=== PATIENT | male | born 1965 | race Caucasian/White ===

== ENCOUNTER 2018-12-17 10:20 | Emergency (ER) | payer SELFPAY ==
[2018-12-17 11:32] LABS: ADD MAN DIFF? NO
[2018-12-17 11:36] LABS: WHITE BLOOD COUNT 3.9 10^3/ul (4.8-10.8)
[2018-12-17 11:36] LABS: EOSINOPHILS # 0.1 10^3/ul (0.0-0.5); EOSINOPHILS % 3.1 % (0.0-7.0); HEMATOCRIT 46.9 % (42.0-52.0); HEMOGLOBIN 15.4 g/dl (14.0-18.0); LYMPHOCYTES # 1.5 10^3/ul (0.8-2.9); LYMPHOCYTES % 38.4 % (15.0-51.0); MEAN CORPUSCULAR HGB CONC 32.8 g/dl (32.0-37.0); MEAN CORPUSCULAR VOLUME 88.3 fl (82.0-101.0); MONOCYTE # 0.4 10^3/ul (0.3-0.9); MONOCYTES % 9.4 % (0.0-11.0); NEUTROPHIL # 1.9 10^3/ul (1.6-7.5); NEUTROPHILS % 47.8 % (39.0-77.0); PLATELET COUNT 264 10^3/UL (140-415); RED BLOOD COUNT 5.31 10^6/ul (4.70-6.10)
[2018-12-17] MEDS: KETOROLAC 15 MG INJ IV (11:39)
[2018-12-17] MEDS: SOD CHLORIDE 0.9% 1,000 ML IV (11:39)
[2018-12-17] MEDS: CEFTRIAXONE 1 GM/50 ML (PMX) 50 ML IVPB (11:39)
[2018-12-17] MEDS: DEXAMETHASONE 10 MG/ML 1 ML INJ IV (11:39)
[2018-12-17 12:03] LABS: ALANINE AMINOTRANSFERASE 29 IU/L (13-69); ALBUMIN 4.6 g/dl (3.3-4.9); ALBUMIN/GLOBULIN RATIO 1.35; ALKALINE PHOSPHATASE 63 IU/L (42-121); ANION GAP 9 (5-13); ASPARTATE AMINO TRANSFERASE 29 IU/L (15-46); BILIRUBIN,INDIRECT 0.2 mg/dl (0-1.1); BILIRUBIN,TOTAL 0.2 mg/dl (0.2-1.3); BLOOD UREA NITROGEN 15 mg/dl (7-20); CALCIUM 9.3 mg/dl (8.4-10.2); CARBON DIOXIDE 29 mmol/L (21-31); CHLORIDE 102 mmol/L (97-110); CREATININE 0.72 mg/dl (0.61-1.24); Estimated GFR > 60 mL/min (>60); GLUCOSE 113 mg/dl (70-220); POTASSIUM 4.4 mmol/L (3.5-5.1); SODIUM 140 mmol/L (135-144)
[2018-12-17 12:04] LABS: LIPASE 134 U/L (23-300)
[2018-12-17] MEDS: SOD CHLORIDE 0.9% 100 ML (13:56)
[2018-12-17] MEDS: IOHEXOL 300MG/ML 150 ML BTL (13:57)
== END 2018-12-17 15:20 | disposition home or self-care (01) ==
LOC: FTE 15:20
DX: H60.501 Unspecified acute noninfective otitis externa, right ear (principal); K11.20 Sialoadenitis, unspecified
CPT/HCPCS: 36415; 70486; 80053; 83690; 85025; 96361; 96365; 96375; 99285-25